=== PATIENT | female | born 1965 | race Caucasian/White ===

== ENCOUNTER 2017-12-15 16:53 | Inpatient (IN) | payer OTHER ==
[2017-12-15] MEDS: FAMOTIDINE 20 MG INJ IV (18:07)
[2017-12-15] MEDS: PIPER-TAZO 3.375 GM IV (PMX) 100 ML IVPB ×2 (18:07→18:23)
[2017-12-15 18:13] LABS: ADD MAN DIFF? NO
[2017-12-15 18:16] LABS: WHITE BLOOD COUNT 11.5 10^3/ul (4.8-10.8)
[2017-12-15 18:16] LABS: BASOPHIL # 0.1 10^3/ul (0.0-0.1); BASOPHILS % 0.9 % (0.0-2.0); EOSINOPHILS # 0.6 10^3/ul (0.0-0.5); EOSINOPHILS % 4.9 % (0.0-7.0); HEMATOCRIT 41.5 % (37.0-47.0); HEMOGLOBIN 13.8 g/dl (12.0-16.0); LYMPHOCYTES # 3.8 10^3/ul (0.8-2.9); LYMPHOCYTES % 32.8 % (15.0-51.0); MEAN CORPUSCULAR HEMOGLOBIN 29.2 pg (29.0-33.0); MEAN CORPUSCULAR HGB CONC 33.3 g/dl (32.0-37.0); MEAN CORPUSCULAR VOLUME 87.7 fl (82.0-101.0); MEAN PLATELET VOLUME 9.2 fl (7.4-10.4); MONOCYTE # 0.7 10^3/ul (0.3-0.9); MONOCYTES % 6.1 % (0.0-11.0); NEUTROPHIL # 6.3 10^3/ul (1.6-7.5); NEUTROPHILS % 54.7 % (39.0-77.0); PLATELET COUNT 300 10^3/UL (140-415); RED BLOOD COUNT 4.73 10^6/ul (4.20-5.40); RED CELL DISTRIBUTION WIDTH 13.6 % (11.5-14.5)
[2017-12-15 18:40] LABS: ALANINE AMINOTRANSFERASE 29 IU/L (13-69); ALBUMIN 3.7 g/dl (3.3-4.9); ALBUMIN/GLOBULIN RATIO 1.08; ALKALINE PHOSPHATASE 74 IU/L (42-121); ANION GAP 15 (8-16); ASPARTATE AMINO TRANSFERASE 14 IU/L (15-46); BLOOD UREA NITROGEN 17 mg/dl (7-20); CALCIUM 9.5 mg/dl (8.4-10.2); CARBON DIOXIDE 28 mmol/L (21-31); CHLORIDE 103 mmol/L (97-110); CREATININE 0.79 mg/dl (0.44-1.00); GLUCOSE 278 mg/dl (70-220); POTASSIUM 4.5 mmol/L (3.5-5.1); SODIUM 141 mmol/L (135-144); TOTAL PROTEIN 7.1 g/dl (6.1-8.1)
[2017-12-15] MEDS: VANCOMYCIN 1 GM (PMX) 250 ML IVPB (18:45)
[2017-12-15 18:49] LABS: LACTIC ACID 2.2 mmol/L (0.5-2.0)
[2017-12-15] MEDS: SOD CHLORIDE 0.9% 3,100 ML IV (19:08)
[2017-12-15] MEDS: HYDROCODONE/APAP (5/325) TAB PO (19:36)
[2017-12-15 21:30] LABS: ADD UMIC NO; UR ASCORBIC ACID NEGATIVE (NEGATIVE); UR BACTERIA MODERATE /HPF (NONE SEEN); UR BILIRUBIN (Dip) NEGATIVE (NEGATIVE); UR BLOOD (Dip) NEGATIVE (NEGATIVE); UR BUDDING YEAST MANY /HPF (NONE SEEN); UR CLARITY SLIGHTLY CLOUDY (CLEAR); UR COLOR YELLOW (YELLOW); UR GLUCOSE (Dip) 3+ mg/dL (NEGATIVE); UR KETONES (Dip) TRACE mg/dL (NEGATIVE); UR LEUKOCYTE ESTERASE (Dip) NEGATIVE Leu/ul (NEGATIVE); UR MUCUS FEW /HPF (NONE SEEN); UR NITRITE (Dip) NEGATIVE (NEGATIVE); UR RBC 5 /HPF (0-5); UR SPECIFIC GRAVITY (Dip) 1.029 (1.003-1.030); UR SQUAMOUS EPITHELIAL CELL FEW /HPF (FEW); UR TOTAL PROTEIN (Dip) NEGATIVE (NEGATIVE); UR UROBILINOGEN (Dip) NEGATIVE (NEGATIVE); UR WBC 15 /HPF (0-5)
[2017-12-15 22:28] LABS: LACTIC ACID 1.2 mmol/L (0.5-2.0)
[2017-12-16] MEDS ORDERED: ONDANSETRON 4 MG INJ IV (01:00)
[2017-12-16] MEDS ORDERED: ACETAMINOPHEN 325 MG TAB PO (01:00)
[2017-12-16] MEDS ORDERED: DOCUSATE SODIUM 100 MG CAP PO (01:00)
[2017-12-16] MEDS ORDERED: NACL 0.9% 3 ML SYG IV (01:00)
[2017-12-16] MEDS ORDERED: MAGNESIUM HYDROXIDE 30ML CUP PO (01:00)
[2017-12-16] MEDS ORDERED: ZOLPIDEM 5 MG TAB PO (01:00)
[2017-12-16] MEDS ORDERED: ALPRAZOLAM 0.5 MG TAB PO (01:00)
[2017-12-16] MEDS ORDERED: VANCOMYCIN IV PER PHARMACY XX (01:30)
[2017-12-16] MEDS: ACCU-CHEK XX (02:00)
[2017-12-16] MEDS: VANCOMYCIN 1.25 GM in SOD CHLORIDE 0.9% 250 ML IVPB ×3 (04:15→20:51)
[2017-12-16] MEDS: HYDROCODONE/APAP (5/325) TAB PO ×2 (04:33→23:50)
[2017-12-16 06:25] LABS: ADD MAN DIFF? NO
[2017-12-16 06:36] LABS: BASOPHIL # 0.1 10^3/ul (0.0-0.1); BASOPHILS % 0.7 % (0.0-2.0); EOSINOPHILS # 0.6 10^3/ul (0.0-0.5); EOSINOPHILS % 5.9 % (0.0-7.0); HEMATOCRIT 36.8 % (37.0-47.0); HEMOGLOBIN 12.1 g/dl (12.0-16.0); LYMPHOCYTES % 39.3 % (15.0-51.0); MEAN CORPUSCULAR HEMOGLOBIN 28.9 pg (29.0-33.0); MEAN CORPUSCULAR HGB CONC 32.9 g/dl (32.0-37.0); MEAN CORPUSCULAR VOLUME 87.8 fl (82.0-101.0); MEAN PLATELET VOLUME 9.6 fl (7.4-10.4); MONOCYTE # 0.7 10^3/ul (0.3-0.9); MONOCYTES % 7.3 % (0.0-11.0); NEUTROPHIL # 4.7 10^3/ul (1.6-7.5); NEUTROPHILS % 46.1 % (39.0-77.0); PLATELET COUNT 256 10^3/UL (140-415); RED BLOOD COUNT 4.19 10^6/ul (4.20-5.40); RED CELL DISTRIBUTION WIDTH 13.7 % (11.5-14.5)
[2017-12-16 06:36] LABS: WHITE BLOOD COUNT 10.1 10^3/ul (4.8-10.8)
[2017-12-16 07:03] LABS: ANION GAP 10 (8-16); BLOOD UREA NITROGEN 16 mg/dl (7-20); CALCIUM 8.4 mg/dl (8.4-10.2); CARBON DIOXIDE 27 mmol/L (21-31); CHLORIDE 108 mmol/L (97-110); CREATININE 0.65 mg/dl (0.44-1.00); GLUCOSE 256 mg/dl (70-220); MAGNESIUM 1.7 mg/dl (1.7-2.5); PHOSPHORUS 3.6 mg/dl (2.5-4.9); POTASSIUM 4.2 mmol/L (3.5-5.1); SODIUM 141 mmol/L (135-144)
[2017-12-16 07:07] LABS: C-REACTIVE PROTEIN 3.8 mg/dl (0.0-0.9)
[2017-12-16 07:45] LABS: HEMOGLOBIN A1C 9.6 % (0-5.9)
[2017-12-16 08:39] LABS: ERYTHROCYTE SEDIMENTATION RATE 22 mm/Hr (0-30)
[2017-12-16] MEDS: PIPER-TAZO 3.375 GM IV (PMX) 100 ML IVPB ×4 (08:51→23:55)
[2017-12-16] MEDS: metFORMIN 500 MG TAB PO ×2 (08:52→17:54)
[2017-12-16] MEDS: LIDOCAINE 1% (MPF) 5 ML VIAL SC (09:00)
[2017-12-16] MEDS: INSULIN ASPART [NOVOLOG] 3 ML PEN SC ×8 (09:06→20:46)
[2017-12-16] MEDS: ASPIRIN 81 MG TAB PO (09:07)
[2017-12-16] MEDS: ASCORBIC ACID 500 MG TAB PO (09:07)
[2017-12-16] MEDS: HEPARIN 5,000 UNIT/0.5 ML VIAL SC ×2 (09:09→20:47)
[2017-12-16] MEDS: FLUCONAZOLE 200 MG TAB PO (10:06)
[2017-12-16] MEDS: morphine 2 MG INJ IV ×2 (10:06→19:08)
[2017-12-16 14:01] LABS: ADD UMIC YES; UR ASCORBIC ACID NEGATIVE (NEGATIVE); UR BACTERIA FEW /HPF (NONE SEEN); UR BILIRUBIN (Dip) NEGATIVE (NEGATIVE); UR BLOOD (Dip) NEGATIVE (NEGATIVE); UR BUDDING YEAST MANY /HPF (NONE SEEN); UR CLARITY CLOUDY (CLEAR); UR COLOR STRAW (YELLOW); UR GLUCOSE (Dip) 3+ mg/dL (NEGATIVE); UR KETONES (Dip) NEGATIVE (NEGATIVE); UR LEUKOCYTE ESTERASE (Dip) TRACE Leu/ul (NEGATIVE); UR NITRITE (Dip) NEGATIVE (NEGATIVE); UR RBC 90 /HPF (0-5); UR SPECIFIC GRAVITY (Dip) 1.014 (1.003-1.030); UR SQUAMOUS EPITHELIAL CELL MODERATE /HPF (FEW); UR TOTAL PROTEIN (Dip) NEGATIVE (NEGATIVE); UR UROBILINOGEN (Dip) NEGATIVE (NEGATIVE); UR WBC 123 /HPF (0-5)
[2017-12-16] MEDS: HEPARIN (10 UNITS/ML) 5ML SYG IV (15:42)
[2017-12-16] MEDS: ALPRAZOLAM 0.25 MG TAB PO (16:31)
[2017-12-16] MEDS ORDERED: GLUCOSE GEL 15 GRAM TUBE BUCCAL (20:30)
[2017-12-16] MEDS ORDERED: GLUCAGON 1 MG INJ IM (20:30)
[2017-12-16] MEDS ORDERED: GLUCOSE GEL 15 GRAM TUBE PO ×2 (20:30)
[2017-12-16] MEDS ORDERED: DEXTROSE 50% 50 ML SYRINGE IV ×2 (20:30)
[2017-12-16] MEDS: INSULIN GLARGINE [LANtus] 3 ML PEN SC (20:47)
[2017-12-16] MEDS ORDERED: INSULIN GLARGINE [LANtus] 3 ML PEN SC (21:00)
[2017-12-17] MEDS: ACCU-CHEK XX (01:35)
[2017-12-17 04:31] LABS: ADD MAN DIFF? NO
[2017-12-17 04:35] LABS: BASOPHIL # 0.1 10^3/ul (0.0-0.1); BASOPHILS % 0.6 % (0.0-2.0); EOSINOPHILS # 0.6 10^3/ul (0.0-0.5); EOSINOPHILS % 6.1 % (0.0-7.0); HEMATOCRIT 35.8 % (37.0-47.0); LYMPHOCYTES % 38.1 % (15.0-51.0); MEAN CORPUSCULAR HEMOGLOBIN 29.1 pg (29.0-33.0); MEAN CORPUSCULAR HGB CONC 33.5 g/dl (32.0-37.0); MEAN CORPUSCULAR VOLUME 86.9 fl (82.0-101.0); MEAN PLATELET VOLUME 9.4 fl (7.4-10.4); MONOCYTE # 0.7 10^3/ul (0.3-0.9); NEUTROPHILS % 47.4 % (39.0-77.0); PLATELET COUNT 253 10^3/UL (140-415); RED BLOOD COUNT 4.12 10^6/ul (4.20-5.40); RED CELL DISTRIBUTION WIDTH 13.4 % (11.5-14.5)
[2017-12-17 04:35] LABS: WHITE BLOOD COUNT 10.4 10^3/ul (4.8-10.8)
[2017-12-17 05:00] LABS: PHOSPHORUS 4.3 mg/dl (2.5-4.9)
[2017-12-17 05:03] LABS: ALANINE AMINOTRANSFERASE 27 IU/L (13-69); ALBUMIN 3.3 g/dl (3.3-4.9); ALKALINE PHOSPHATASE 66 IU/L (42-121); ANION GAP 13 (8-16); ASPARTATE AMINO TRANSFERASE 14 IU/L (15-46); BILIRUBIN,INDIRECT 0.1 mg/dl (0-1.1); BILIRUBIN,TOTAL 0.1 mg/dl (0.2-1.3); BLOOD UREA NITROGEN 17 mg/dl (7-20); CARBON DIOXIDE 25 mmol/L (21-31); CHLORIDE 104 mmol/L (97-110); CREATININE 0.52 mg/dl (0.44-1.00); GLUCOSE 183 mg/dl (70-220); POTASSIUM 3.9 mmol/L (3.5-5.1); SODIUM 138 mmol/L (135-144); TOTAL PROTEIN 6.6 g/dl (6.1-8.1)
[2017-12-17 05:05] LABS: VANCOMYCIN,TROUGH 10.8 ug/ml (10.0-20.0)
[2017-12-17] MEDS: PIPER-TAZO 3.375 GM IV (PMX) 100 ML IVPB ×3 (05:14→17:05)
[2017-12-17] MEDS: VANCOMYCIN 1.25 GM in SOD CHLORIDE 0.9% 250 ML IVPB (05:50)
[2017-12-17 07:42] LABS: ERYTHROCYTE SEDIMENTATION RATE 23 mm/Hr (0-30)
[2017-12-17] MEDS: ASPIRIN 81 MG TAB PO (07:58)
[2017-12-17] MEDS: metFORMIN 500 MG TAB PO ×2 (07:59→17:05)
[2017-12-17] MEDS: FLUCONAZOLE 200 MG TAB PO (07:59)
[2017-12-17] MEDS: INSULIN ASPART [NOVOLOG] 3 ML PEN SC ×7 (08:04→21:18)
[2017-12-17] MEDS: HEPARIN 5,000 UNIT/0.5 ML VIAL SC ×2 (08:05→21:19)
[2017-12-17] MEDS: ASCORBIC ACID 500 MG TAB PO (08:07)
[2017-12-17] MEDS: HYDROCODONE/APAP (5/325) TAB PO ×2 (10:43→18:46)
[2017-12-17 11:36] LABS: CHOL/HDL RATIO 3.5 RATIO; HDL CHOLESTEROL 35 mg/dl (37-92); LDL CHOLESTEROL,CALCULATED 19 mg/dl; TRIGLYCERIDES 353 mg/dl (0-149)
[2017-12-17 11:36] LABS: CHOLESTEROL 125 mg/dl (100-200)
[2017-12-17] MEDS: VANCOMYCIN 1.5 GM in SOD CHLORIDE 0.9% 250 ML IVPB ×2 (13:22→21:04)
[2017-12-17] MEDS: morphine 2 MG INJ IV ×2 (14:27→21:04)
[2017-12-17] MEDS: INSULIN GLARGINE [LANtus] 3 ML PEN SC (21:18)
[2017-12-18] MEDS: ALPRAZOLAM 0.25 MG TAB PO (00:10)
[2017-12-18] MEDS: PIPER-TAZO 3.375 GM IV (PMX) 100 ML IVPB ×3 (00:59→11:55)
[2017-12-18] MEDS: ACCU-CHEK XX (02:00)
[2017-12-18] MEDS: VANCOMYCIN 1.5 GM in SOD CHLORIDE 0.9% 250 ML IVPB ×2 (04:31→13:13)
[2017-12-18 06:14] LABS: ADD MAN DIFF? NO
[2017-12-18 06:18] LABS: BASOPHIL # 0.1 10^3/ul (0.0-0.1); BASOPHILS % 0.9 % (0.0-2.0); EOSINOPHILS # 0.6 10^3/ul (0.0-0.5); EOSINOPHILS % 6.4 % (0.0-7.0); HEMATOCRIT 36.8 % (37.0-47.0); HEMOGLOBIN 12.4 g/dl (12.0-16.0); LYMPHOCYTES # 3.5 10^3/ul (0.8-2.9); LYMPHOCYTES % 36.9 % (15.0-51.0); MEAN CORPUSCULAR HEMOGLOBIN 29.3 pg (29.0-33.0); MEAN CORPUSCULAR HGB CONC 33.7 g/dl (32.0-37.0); MEAN PLATELET VOLUME 9.5 fl (7.4-10.4); MONOCYTE # 0.6 10^3/ul (0.3-0.9); MONOCYTES % 6.4 % (0.0-11.0); NEUTROPHIL # 4.6 10^3/ul (1.6-7.5); NEUTROPHILS % 48.3 % (39.0-77.0); PLATELET COUNT 253 10^3/UL (140-415); RED BLOOD COUNT 4.23 10^6/ul (4.20-5.40); RED CELL DISTRIBUTION WIDTH 13.4 % (11.5-14.5)
[2017-12-18 06:18] LABS: WHITE BLOOD COUNT 9.5 10^3/ul (4.8-10.8)
[2017-12-18 06:37] LABS: ANION GAP 13 (8-16); BLOOD UREA NITROGEN 16 mg/dl (7-20); CALCIUM 9.1 mg/dl (8.4-10.2); CARBON DIOXIDE 27 mmol/L (21-31); CHLORIDE 103 mmol/L (97-110); CREATININE 0.55 mg/dl (0.44-1.00); GLUCOSE 191 mg/dl (70-220); POTASSIUM 3.8 mmol/L (3.5-5.1); SODIUM 139 mmol/L (135-144)
[2017-12-18 06:39] LABS: MAGNESIUM 1.7 mg/dl (1.7-2.5)
[2017-12-18 06:39] LABS: PHOSPHORUS 5.3 mg/dl (2.5-4.9)
[2017-12-18] MEDS: metFORMIN 500 MG TAB PO ×2 (08:12→17:15)
[2017-12-18] MEDS: ASPIRIN 81 MG TAB PO (08:12)
[2017-12-18] MEDS: ASCORBIC ACID 500 MG TAB PO (08:12)
[2017-12-18] MEDS: FLUCONAZOLE 200 MG TAB PO (08:12)
[2017-12-18] MEDS: INSULIN ASPART [NOVOLOG] 3 ML PEN SC ×7 (08:15→20:42)
[2017-12-18] MEDS: HEPARIN 5,000 UNIT/0.5 ML VIAL SC ×2 (08:15→20:43)
[2017-12-18] MEDS: HYDROCODONE/APAP (5/325) TAB PO ×3 (09:28→23:33)
[2017-12-18] MEDS: FISH OIL 1,000 MG CAP PO (20:35)
[2017-12-18 20:41] LABS: VANCOMYCIN,TROUGH 24.2 ug/ml (10.0-20.0)
[2017-12-18] MEDS: INSULIN GLARGINE [LANtus] 3 ML PEN SC (20:43)
[2017-12-18] MEDS: morphine 2 MG INJ IV (20:45)
[2017-12-19] MEDS: ACCU-CHEK XX (01:58)
[2017-12-19] MEDS: HYDROCODONE/APAP (5/325) TAB PO ×4 (05:53→23:38)
[2017-12-19 06:17] LABS: ADD MAN DIFF? NO
[2017-12-19 06:22] LABS: BASOPHIL # 0.1 10^3/ul (0.0-0.1); BASOPHILS % 0.8 % (0.0-2.0); EOSINOPHILS # 0.6 10^3/ul (0.0-0.5); EOSINOPHILS % 5.9 % (0.0-7.0); HEMATOCRIT 38.6 % (37.0-47.0); HEMOGLOBIN 12.5 g/dl (12.0-16.0); LYMPHOCYTES # 3.8 10^3/ul (0.8-2.9); LYMPHOCYTES % 39.8 % (15.0-51.0); MEAN CORPUSCULAR HEMOGLOBIN 28.4 pg (29.0-33.0); MEAN CORPUSCULAR HGB CONC 32.4 g/dl (32.0-37.0); MEAN CORPUSCULAR VOLUME 87.7 fl (82.0-101.0); MEAN PLATELET VOLUME 9.6 fl (7.4-10.4); MONOCYTE # 0.6 10^3/ul (0.3-0.9); MONOCYTES % 6.5 % (0.0-11.0); NEUTROPHIL # 4.4 10^3/ul (1.6-7.5); NEUTROPHILS % 46.4 % (39.0-77.0); PLATELET COUNT 253 10^3/UL (140-415); RED CELL DISTRIBUTION WIDTH 13.2 % (11.5-14.5)
[2017-12-19 06:22] LABS: WHITE BLOOD COUNT 9.6 10^3/ul (4.8-10.8)
[2017-12-19 06:44] LABS: PHOSPHORUS 5.8 mg/dl (2.5-4.9)
[2017-12-19 06:44] LABS: MAGNESIUM 1.7 mg/dl (1.7-2.5)
[2017-12-19 06:48] LABS: ANION GAP 14 (8-16); BLOOD UREA NITROGEN 20 mg/dl (7-20); CARBON DIOXIDE 28 mmol/L (21-31); CHLORIDE 102 mmol/L (97-110); CREATININE 0.54 mg/dl (0.44-1.00); GLUCOSE 184 mg/dl (70-220); POTASSIUM 3.8 mmol/L (3.5-5.1); SODIUM 140 mmol/L (135-144)
[2017-12-19] MEDS: INSULIN ASPART [NOVOLOG] 3 ML PEN SC ×7 (08:25→21:06)
[2017-12-19] MEDS: HEPARIN 5,000 UNIT/0.5 ML VIAL SC ×2 (08:27→21:07)
[2017-12-19] MEDS: ASCORBIC ACID 500 MG TAB PO (08:28)
[2017-12-19] MEDS: LINAGLIPTIN 5 MG TABLET PO (08:28)
[2017-12-19] MEDS: FLUCONAZOLE 200 MG TAB PO (08:28)
[2017-12-19] MEDS: FISH OIL 1,000 MG CAP PO ×2 (08:28→21:07)
[2017-12-19] MEDS: ASPIRIN 81 MG TAB PO (08:28)
[2017-12-19] MEDS: metFORMIN 500 MG TAB PO ×2 (08:33→17:42)
[2017-12-19] MEDS: VANCOMYCIN 1.25 GM in SOD CHLORIDE 0.9% 250 ML IVPB (14:26)
[2017-12-19] MEDS: INSULIN GLARGINE [LANtus] 3 ML PEN SC (21:06)
[2017-12-19] MEDS: SACCHAROMYCES BOULARDII 250 MG CAP PO (21:08)
[2017-12-20] MEDS: VANCOMYCIN 1.25 GM in SOD CHLORIDE 0.9% 250 ML IVPB ×2 (01:14→14:30)
[2017-12-20] MEDS: ACCU-CHEK XX (01:20)
[2017-12-20] MEDS: INSULIN ASPART [NOVOLOG] 3 ML PEN SC ×7 (09:08→20:52)
[2017-12-20] MEDS: HEPARIN 5,000 UNIT/0.5 ML VIAL SC ×2 (09:10→20:49)
[2017-12-20] MEDS: ASPIRIN 81 MG TAB PO (09:11)
[2017-12-20] MEDS: FLUCONAZOLE 200 MG TAB PO (09:12)
[2017-12-20] MEDS: FISH OIL 1,000 MG CAP PO ×2 (09:13→20:35)
[2017-12-20] MEDS: LINAGLIPTIN 5 MG TABLET PO (09:14)
[2017-12-20] MEDS: SACCHAROMYCES BOULARDII 250 MG CAP PO ×2 (09:14→20:37)
[2017-12-20] MEDS: ASCORBIC ACID 500 MG TAB PO (09:15)
[2017-12-20] MEDS: metFORMIN 500 MG TAB PO ×2 (09:16→17:33)
[2017-12-20] MEDS: HYDROCODONE/APAP (5/325) TAB PO ×3 (09:44→23:19)
[2017-12-20] MEDS: INSULIN GLARGINE [LANtus] 3 ML PEN SC (20:54)
[2017-12-20] MEDS: ALPRAZOLAM 0.25 MG TAB PO (23:19)
[2017-12-21 01:28] LABS: VANCOMYCIN,TROUGH 8.3 ug/ml (10.0-20.0)
[2017-12-21] MEDS: VANCOMYCIN 1.25 GM in SOD CHLORIDE 0.9% 250 ML IVPB (01:39)
[2017-12-21] MEDS: ACCU-CHEK XX (02:03)
[2017-12-21 07:39] LABS: BLOOD UREA NITROGEN 20 mg/dl (7-20)
[2017-12-21 07:39] LABS: CREATININE 0.52 mg/dl (0.44-1.00)
[2017-12-21] MEDS: INSULIN ASPART [NOVOLOG] 3 ML PEN SC ×7 (08:26→21:00)
[2017-12-21] MEDS: HYDROCODONE/APAP (5/325) TAB PO ×3 (08:35→20:41)
[2017-12-21] MEDS: HEPARIN 5,000 UNIT/0.5 ML VIAL SC ×2 (09:16→21:14)
[2017-12-21] MEDS: ASCORBIC ACID 500 MG TAB PO (09:22)
[2017-12-21] MEDS: metFORMIN 500 MG TAB PO ×2 (09:23→17:27)
[2017-12-21] MEDS: ASPIRIN 81 MG TAB PO (09:23)
[2017-12-21] MEDS: FISH OIL 1,000 MG CAP PO ×2 (09:24→21:12)
[2017-12-21] MEDS: SACCHAROMYCES BOULARDII 250 MG CAP PO ×2 (09:24→21:12)
[2017-12-21] MEDS: LINAGLIPTIN 5 MG TABLET PO (09:25)
[2017-12-21] MEDS: FLUCONAZOLE 200 MG TAB PO (09:26)
[2017-12-21] MEDS: VANCOMYCIN 1.5 GM in SOD CHLORIDE 0.9% 250 ML IVPB (13:02)
[2017-12-21] MEDS: INSULIN GLARGINE [LANtus] 3 ML PEN SC (21:15)
[2017-12-21] MEDS: ALPRAZOLAM 0.25 MG TAB PO (23:59)
[2017-12-22] MEDS: VANCOMYCIN 1.5 GM in SOD CHLORIDE 0.9% 250 ML IVPB ×2 (00:46→11:36)
[2017-12-22] MEDS: ACCU-CHEK XX (02:00)
[2017-12-22] MEDS: HYDROCODONE/APAP (5/325) TAB PO ×2 (07:56→13:58)
[2017-12-22] MEDS: ASPIRIN 81 MG TAB PO (08:18)
[2017-12-22] MEDS: SACCHAROMYCES BOULARDII 250 MG CAP PO (08:18)
[2017-12-22] MEDS: ASCORBIC ACID 500 MG TAB PO (08:19)
[2017-12-22] MEDS: FLUCONAZOLE 200 MG TAB PO (08:19)
[2017-12-22] MEDS: FISH OIL 1,000 MG CAP PO (08:19)
[2017-12-22] MEDS: LINAGLIPTIN 5 MG TABLET PO (08:19)
[2017-12-22] MEDS: HEPARIN 5,000 UNIT/0.5 ML VIAL SC (08:20)
[2017-12-22] MEDS: INSULIN ASPART [NOVOLOG] 3 ML PEN SC ×4 (08:22→12:21)
[2017-12-22] MEDS: metFORMIN 500 MG TAB PO (08:24)
[2017-12-22] MEDS: ALPRAZOLAM 0.25 MG TAB PO (13:57)
== END 2017-12-22 15:40 | disposition home health service (06) | DRG 872 ==
LOC: MS2 21:57 → FTE 16:53
PROC: 0Y9N0ZZ Drainage of Left Foot, Open Approach (ICD-10-PCS; principal; 2017-12-16)
PROC: 02HV33Z Insertion of Infusion Device into Superior Vena Cava, Percutaneous Approach (ICD-10-PCS; 2017-12-16)
PROC: B548ZZA Ultrasonography of Superior Vena Cava, Guidance (ICD-10-PCS; 2017-12-16)
DX: A41.9 Sepsis, unspecified organism (principal); Z68.41 Body mass index [BMI] 40.0-44.9, adult; B37.49 Other urogenital candidiasis; M86.171 Other acute osteomyelitis, right ankle and foot; M00.071 Staphylococcal arthritis, right ankle and foot; E11.42 Type 2 diabetes mellitus with diabetic polyneuropathy; E11.621 Type 2 diabetes mellitus with foot ulcer; F17.200 Nicotine dependence, unspecified, uncomplicated; E11.69 Type 2 diabetes mellitus with other specified complication; E11.610 Type 2 diabetes mellitus with diabetic neuropathic arthropathy; E11.65 Type 2 diabetes mellitus with hyperglycemia; E66.01 Morbid (severe) obesity due to excess calories; L97.519 Non-pressure chronic ulcer of other part of right foot with unspecified severity; E78.5 Hyperlipidemia, unspecified; L03.031 Cellulitis of right toe; F17.210 Nicotine dependence, cigarettes, uncomplicated; F34.1 Dysthymic disorder; B95.7 Other staphylococcus as the cause of diseases classified elsewhere; Z79.4 Long term (current) use of insulin; Z79.82 Long term (current) use of aspirin
CPT/HCPCS: 36415; 36569; 71045; 73630; 73718; 76937; 80048; 80053; 80061; 80202; 81001; 81003; 82565; 82962; 83036; 83605; 83735; 84100; 84520; 85025; 85651; 86140; 87040; 87070; 87086; 96361; 96365; 96366; 96367; 96375; 97161; 99285-25